=== PATIENT | female | born 1970 | race Caucasian/White ===

== ENCOUNTER 2017-06-30 20:45 | Emergency (ER) | payer BC ==
[2017-06-30] MEDS ORDERED: LORazepam 2 MG/ML SDV IVPUSH ONE (21:03)
--- NOTE | 2017-06-30 21:12 | EDM.PDOCBH ---
ED HPI GENERAL MEDICAL PROBLEM - General Chief Complaint: Chest Pain Stated Complaint: CHEST PAIN Time Seen by Provider: 06/30/17 20:54 Source of Information: Reports: Patient, Family History Limitations: Reports: Other (Experiencing a panic attack) - History of Present Illness INITIAL COMMENTS - FREE TEXT/NARRATIVE: Patient is a 47-year-old female presents ED complaining of chest and back pains been going on for the past few days. Patient presents to the ED having a panic attack. Patient complains of increased breathing rate with n/t to the face, lips , and hands. States she was just going to work at the [employer] this evening and started having worsening symptoms. Drove herself back to [facility] to be evaluated. States the pain to the chest and back have been going back and forth described as a pressure sensation worsened with taking a deep breath. She' s had similar symptoms in the past when she experiences panic attacks. She denies any recent increased stress at work at home. She is treated with sertraline for anxiety and depression. Denies any nausea/vomiting, headache, fever, abdominal pain, dysuria, or any additional complaints. Past medical history includes: Panic attacks, depression/anxiety, GERD, seasonal allergies. Current medications include Prilosec, sertraline, Ashley, and vitamins. Patient denies any surgical history. PCP is Sarah Castillo. Patient states both her brother and father developed heart disease in their late 30s. Alcohol use occasionally. Denies any recreational drugs or smoking history. - Related Data Allergies Allergy/AdvReac Type Severity Reaction Status Date / Time No Known Allergies Allergy Verified 06/30/17 21:05 Past Medical History - Past Health History Medical/Surgical History: Denies Medical/Surgical History Psychiatric History: Reports: Anxiety Social & Family History - Family History Family Medical History: Noncontributory - Tobacco Use Smoking Status *Q: Never Smoker - Recreational Drug Use Recreational Drug Use: No ED ROS GENERAL - Review of Systems Review Of Systems: ROS reveals no pertinent complaints other than HPI. ED EXAM, BEHAVIORAL HEALTH - Physical Exam Exam: See Below Exam Limited By: Other (Having a panic attack) General Appearance: Alert, Anxious, Mild Distress Eye Exam: Bilateral Eye: Normal Inspection, PERRL Ears: Hearing Grossly Normal Nose: Normal Inspection Throat/Mouth: Normal Inspection, Normal Oropharynx, Normal Voice, No Airway Compromise Head: Atraumatic, Normocephalic Neck: Normal Inspection, Supple, Non-Tender, Full Range of Motion Respiratory/Chest: No Respiratory Distress, Lungs Clear, Normal Breath Sounds, No Accessory Muscle Use, Chest Non-Tender Cardiovascular: Normal Peripheral Pulses, Regular Rate, Rhythm, No Murmur GI/Abdominal: Normal Bowel Sounds, Soft, Non-Tender, No Organomegaly, No Distention Back Exam: Normal Inspection Extremities: Normal Inspection Neurological: Alert, CN II-XII Intact, Normal Cognition, No Motor/Sensory Deficits, Oriented x 3 Psychiatric: Alert, Normal Cognition, Oriented, Tearful (Having a panic attack) Skin Exam: Warm, Dry, Normal color COURSE, BEHAVIORAL HEALTH COMP - Course Vital Signs: Last Vital Signs Temp 96.9 F 06/30/17 20:47 Pulse 69 06/30/17 20:47 Resp 38 H 06/30/17 20:47 BP 138/97 H 06/30/17 20:47 Pulse Ox 99 06/30/17 20:47 Orders, Labs, Meds: Active Orders 24 hr Category Date Time Status DRUG SCREEN, URINE [URCHEM] Stat Lab 06/30/17 21:42 Ordered Laboratory Tests 06/30/17 06/30/17 06/30/17 Range/Units 20:55 20:55 20:55 WBC 8.50 (3.98-10.04) K/mm3 RBC 4.93 (3.98-5.22) M/mm3 Hgb 13.6 (11.2-15.7) gm/L Hct 41.8 (34.1-44.9) % MCV 84.8 (79.4-94.8) fl MCH 27.6 (25.6-32.2) pg MCHC 32.5 (32.2-35.5) g/dl RDW Std Deviation 42.2 (36.4-46.3) fL Plt Count 384 H (182-369) K/mm3 MPV 10.4 (9.4-12.3) fl Neutrophils % (Manual) 51 (40-60) % Band Neutrophils % 0 (0-10) % Lymphocytes % (Manual) 46 H (20-40) % Atypical Lymphs % 0 % Monocytes % (Manual) 2 (2-10) % Eosinophils % (Manual) 0 L (0.7-5.8) % Basophils % (Manual) 1 (0.1-1.2) Platelet Estimate Adequate Plt Morphology Comment Normal RBC Morph Comment Normal Sodium 139 (136-145) mEq/L Potassium 3.4 L (3.5-5.1) mEq/L Chloride 105 (98-107) mEq/L Carbon Dioxide 20 L (21-32) mEq/L Anion Gap 17.4 H (5-15) BUN 10 (7-18) mg/dL Creatinine 0.9 (0.55-1.02) mg/dL Est Cr Clr Drug Dosing 80.76 mL/min Estimated GFR (MDRD) > 60 (>60) mL/min BUN/Creatinine Ratio 11.1 L (14-18) Glucose 97 (74-106) mg/dL Calcium 9.5 (8.5-10.1) mg/dL Total Bilirubin 0.3 (0.2-1.0) mg/dL AST 22 (15-37) U/L ALT 15 (14-59) U/L Alkaline Phosphatase 91 (46-116) U/L Troponin I < 0.017 (0.00-0.056) ng/mL C-Reactive Protein 0.4 (<1.0) mg/dL Total Protein 7.6 (6.4-8.2) g/dl Albumin 3.6 (3.4-5.0) g/dl Globulin 4.0 gm/dL Albumin/Globulin Ratio 0.9 L (1-2) TSH 3rd Generation 1.632 (0.358-3.74) uIU/mL HCG, Qual Negative (NEGATIVE) Urine Color (Yellow) Urine Appearance (Clear) Urine pH (5.0-8.0) Ur Specific [place] (1.005-1.030) Urine Protein (Negative) Urine Glucose (UA) (Negative) Urine Ketones (Negative) Urine Occult Blood (Negative) Urine Nitrite (Negative) Urine Bilirubin (Negative) Urine Urobilinogen (0.2-1.0) Ur Leukocyte Esterase (Negative) Urine RBC (0-5) /hpf Urine WBC (0-5) /hpf Ur Epithelial Cells (0-5) /hpf Urine Bacteria (FEW) /hpf Hyaline Casts (0-5) /lpf Urine Mucus (FEW) /hpf Urine Opiates Screen (NEGATIVE) Ur Buprenorphine Scrn (NEGATIVE) Ur Oxycodone Screen (NEGATIVE) Urine Methadone Screen (NEGATIVE) Ur Propoxyphene Screen (NEGATIVE) Ur Barbiturates Screen (NEGATIVE) Ur Tricyclics Screen (NEGATIVE) Ur Phencyclidine Scrn (NEGATIVE) Ur Amphetamine Screen (NEGATIVE) U Methamphetamines Scrn (NEGATIVE) U Benzodiazepines Scrn (NEGATIVE) U Cocaine Metab Screen (NEGATIVE) U Marijuana (THC) Screen (NEGATIVE) 06/30/17 06/30/17 Range/Units 21:42 21:42 WBC (3.98-10.04) K/mm3 RBC (3.98-5.22) M/mm3 Hgb (11.2-15.7) gm/L Hct (34.1-44.9) % MCV (79.4-94.8) fl MCH (25.6-32.2) pg MCHC (32.2-35.5) g/dl RDW Std Deviation (36.4-46.3) fL Plt Count (182-369) K/mm3 MPV (9.4-12.3) fl Neutrophils % (Manual) (40-60) % Band Neutrophils % (0-10) % Lymphocytes % (Manual) (20-40) % Atypical Lymphs % % Monocytes % (Manual) (2-10) % Eosinophils % (Manual) (0.7-5.8) % Basophils % (Manual) (0.1-1.2) Platelet Estimate Plt Morphology Comment RBC Morph Comment Sodium (136-145) mEq/L Potassium (3.5-5.1) mEq/L Chloride (98-107) mEq/L Carbon Dioxide (21-32) mEq/L Anion Gap (5-15) BUN (7-18) mg/dL Creatinine (0.55-1.02) mg/dL Est Cr Clr Drug Dosing mL/min Estimated GFR (MDRD) (>60) mL/min BUN/Creatinine Ratio (14-18) Glucose (74-106) mg/dL Calcium (8.5-10.1) mg/dL Total Bilirubin (0.2-1.0) mg/dL AST (15-37) U/L ALT (14-59) U/L Alkaline Phosphatase (46-116) U/L Troponin I (0.00-0.056) ng/mL C-Reactive Protein (<1.0) mg/dL Total Protein (6.4-8.2) g/dl Albumin (3.4-5.0) g/dl Globulin gm/dL Albumin/Globulin Ratio (1-2) TSH 3rd Generation (0.358-3.74) uIU/mL HCG, Qual (NEGATIVE) Urine Color Yellow (Yellow) Urine Appearance Clear (Clear) Urine pH 6.5 (5.0-8.0) Ur Specific [place] 1.025 (1.005-1.030) Urine Protein Negative (Negative) Urine Glucose (UA) Negative (Negative) Urine Ketones Negative (Negative) Urine Occult Blood Negative (Negative) Urine Nitrite Negative (Negative) Urine Bilirubin Negative (Negative) Urine Urobilinogen 0.2 (0.2-1.0) Ur Leukocyte Esterase Negative (Negative) Urine RBC 0-5 (0-5) /hpf Urine WBC 0-5 (0-5) /hpf Ur Epithelial Cells 5-10 H (0-5) /hpf Urine Bacteria Few (FEW) /hpf Hyaline Casts 0-5 (0-5) /lpf Urine Mucus Many H (FEW) /hpf Urine Opiates Screen Negative (NEGATIVE) Ur Buprenorphine Scrn Negative (NEGATIVE) Ur Oxycodone Screen Negative (NEGATIVE) Urine Methadone Screen Negative (NEGATIVE) Ur Propoxyphene Screen Negative (NEGATIVE) Ur Barbiturates Screen Negative (NEGATIVE) Ur Tricyclics Screen Negative (NEGATIVE) Ur Phencyclidine Scrn Negative (NEGATIVE) Ur Amphetamine Screen Negative (NEGATIVE) U Methamphetamines Scrn Negative (NEGATIVE) U Benzodiazepines Scrn Negative (NEGATIVE) U Cocaine Metab Screen Negative (NEGATIVE) U Marijuana (THC) Screen Negative (NEGATIVE) Medications Discontinued Medications Generic Name Dose Route Start Last Admin Trade Name Mariela PRN Reason Stop Dose Admin Lorazepam 0.5 mg 06/30/17 21:03 06/30/17 21:12 Ativan IVPUSH 06/30/17 21:04 0.5 mg ONETIME ONE Administration Re-Assessment/Re-Exam: Blood pressure on examination 130/97, heart rate 74, SPO2 100%, respiratory rate 20. During examination patient started holding her breath having a panic attack. Daughter was on the phone with father and coached her to calm down. IV established. Ordered some Ativan 0.5 mg IVP. Initial labs and studies include CBC, chem 14, CRP, troponin, TSH, UA, urine drug tox, hCG, and chest x-ray one view. EKG revealed sinus rhythm at a rate of [address] changes noted. HI interval is 107. QTC 465. Chest x-ray impression: reviewed with Dr. Gillis with no acute findings. Final interpretation is pending. Labs reviewed: CBC essentially normal. K 3.4. Troponin WNL. TSH WNL. CRP WNL. UA negative for infection. HCG negative. 2146 Reassessment, patient resting comfortably in bed. VSS. She is ready to be discharged home. Departure - Departure Time of Disposition: 21:59 Disposition: Home, Self-Care 01 Condition: Good Clinical Impression: Panic attack, Acute chest wall pain Back pain Qualifiers: Back pain location: thoracic back pain Chronicity: acute Back pain laterality: bilateral Qualified Code(s): M54.6 - Pain in thoracic spine - Discharge Information Instructions: Panic Attack, [id number], Back Pain, Adult, [id number], Chest Wall Pain Referrals: PCP,Declined [Ordering Only Provider] - Forms: ED Department Discharge, ED Return to Work/School Form Additional Instructions: Suggest going home and resting this evening. See your PCP this coming week for reevaluation. Return to the E.D. if you develop any new or worsening symptoms. No driving this evening. - My Orders Last 24 Hours: My Active Orders 06/30/17 21:42 DRUG SCREEN, URINE [URCHEM] Stat - Assessment/Plan Last 24 Hours: My Active Orders 06/30/17 21:42 DRUG SCREEN, URINE [URCHEM] Stat
--- NOTE | 2017-07-02 08:36 | CR ---
Chest: Portable view of the chest was obtained. Comparison: No prior chest x-ray. Heart size and mediastinum are normal. Lungs are clear. Bony structures are grossly intact. Impression: 1. Nothing acute is seen on portable chest x-ray. Diagnostic code #1
== END 2017-06-30 22:14 | disposition home or self-care (01) ==
LOC: JD.ED 20:45
DX: F41.0 Panic disorder [episodic paroxysmal anxiety] (principal); M54.6 Pain in thoracic spine
CPT/HCPCS: 36415; 71045; 80053; 80306; 81001; 84443; 84484; 84703; 85007; 85027; 86140; 96374; 99285; J2060

== ENCOUNTER → 2020-02-12 | Day surgery (SDC) | payer BC ==
[~2020-02-12] MED LIST: Acetaminophen/HYDROcodone 325-5 MG Tab PO ONE; Bupivacaine 0.25% 10 ML SDV ONE; Dexamethasone 4 MG/ML 5 ML MDV ONE; Dexmedetomidine 200 MCG/2 ML SDV ONE; EPINEPHrine 1 MG/ML 30 ML MDV IRR SCH; HYDROmorphone 0.5 MG/0.5 ML Syringe IVPUSH PRN; Ketamine 500 mg/10 ML MDV ONE; Ketorolac 30 MG/ML SDV ONE; Lactated Ringers 1,000 ML IV SCH; Lactated Ringers 1,000 ML ONE; Lidocaine 1% 4 ML ONE; Lidocaine 1%/Sod Bicarbonate in NS 8.4% 1 ML Syringe IDERM PRN; Midazolam 1 MG/ML 2 ML SDV ONE; Ondansetron 4 MG/2 ML SDV IVPUSH PRN; Ondansetron 4 MG/2 ML SDV ONE; Propofol 200 MG/20 ML SDV ONE; Sodium Chloride 0.9% 10 ML Syringe FLUSH PRN; ceFAZolin 1 GM Vial ONE; fentaNYL 100 MCG/2 ML SDV IVPUSH PRN; fentaNYL 100 MCG/2 ML SDV ONE
--- NOTE | 2020-02-12 07:41 | PCM.PREANE ---
Preanesthetic Assessment - Procedure Proposed Procedure: Left KVA with synovectomy - Anesthesia/Transfusion/Family Hx Anesthesia History: Prior Anesthesia Reaction (Wakes up with anger and agitation.) Family History of Anesthesia Reaction: No - Review of Systems General: No Symptoms Pulmonary: Other (Sleep Apnea, has a CPAP does not use it. ) Cardiovascular: No Symptoms Gastrointestinal: Other (GERD controlled with her medication) Neurological: Other (Hearing loss, tinnitus) Other: Reports: None (Obesity), Depression, Anxiety (Panic Attacks) - Physical Assessment NPO Status Date: 02/11/20 NPO Status Time: 20:30 (Water) Weight: 106 kg ASA Class: 3 Mental Status: Alert & Oriented x3 Airway Class: Mallampati = 3 Dentition: Reports: Missing Tooth/Teeth Thyro-Mental Finger Breadths: 2 Mouth Opening Finger Breadths: 3 ROM/Head Extension: Full Lungs: Clear to Auscultation, Normal Respiratory Effort Cardiovascular: Regular Rate, Regular Rhythm - Lab Values: Laboratory Last Values MRSA (PCR) Negative 02/04/20 10:35 - Allergies Allergies/Adverse Reactions: Allergies Allergy/AdvReac Type Severity Reaction Status Date / Time No Known Allergies Allergy Verified 06/30/17 21:05 - Anesthesia Plan Pre-Op Medication Ordered: Anxiolytic - Acknowledgements Anesthesia Type Planned: General Anesthesia (LMA Bandana) Pt an Appropriate Candidate for the Planned Anesthesia: Yes Alternatives and Risks of Anesthesia Discussed w Pt/Guardian: Yes Pt/Guardian Understands and Agrees with Anesthesia Plan: Yes PreAnesthesia Questionnaire - Past Health History Medical/Surgical History: Denies Medical/Surgical History Psychiatric History: Reports: Anxiety - HOME MEDS Home Medications: Home Meds Acetaminophen/HYDROcodone [[place] 325-5 MG] 1 - 2 tab PO Q6H PRN #20 tablet 02/12/20 [Rx] Aspirin [Aspirin EC] 325 mg PO BID #84 tab 02/12/20 [Rx] - CURRENT (IN HOUSE) MEDS Current Meds: Current Medications Epinephrine HCl (Adrenalin) 3 mg IRR ONETIME RA Stop: 02/12/20 23:00 Lactated Ringer's (Ringers, Lactated) 1,000 mls @ 125 mls/hr IV ASDIRECTED RA Stop: 02/12/20 23:00 Last Admin: 02/12/20 06:50 Dose: 125 mls/hr Documented by: Lidocaine/Sodium Bicarbonate (Buffered Lidocaine 1% In Ns 8.4%) 0.25 ml IDERM ONETIME PRN PRN Reason: Prior to IV Start Stop: 02/12/20 18:00 Sodium Chloride (Saline Flush) 10 ml FLUSH ASDIRECTED PRN PRN Reason: Keep Vein Open Stop: 02/12/20 18:00 Discontinued Medications Bupivacaine HCl (Sensorcaine-Mpf 0.25%) Confirm Administered Dose 20 ml .ROUTE .STK-MED ONE Stop: 02/12/20 06:15 Cefazolin Sodium (Ancef) Confirm Administered Dose 2 gm .ROUTE .STK-MED ONE Stop: 02/12/20 06:31 Dexamethasone (Dexamethasone) Confirm Administered Dose 20 mg .ROUTE .STK-MED ONE Stop: 02/12/20 06:32 Dexmedetomidine HCl (Precedex) Confirm Administered Dose 200 mcg .ROUTE .STK-MED ONE Stop: 02/12/20 07:15 Fentanyl (Sublimaze) Confirm Administered Dose 100 mcg .ROUTE .STK-MED ONE Stop: 02/12/20 06:31 Lactated Ringer's (Ringers, Lactated) Confirm Administered Dose 1,000 mls @ as directed .ROUTE .STK-MED ONE Stop: 02/12/20 06:31 Lidocaine HCl (Xylocaine-Mpf 1%) Confirm Administered Dose 4 mls @ as directed .ROUTE .STK-MED ONE Stop: 02/12/20 06:32 Ketamine HCl (Ketalar) Confirm Administered Dose 500 mg .ROUTE .STK-MED ONE Stop: 02/12/20 07:09 Ketorolac Tromethamine (Toradol) Confirm Administered Dose 30 mg .ROUTE .STK-MED ONE Stop: 02/12/20 06:31 Midazolam HCl (Versed 1 Mg/Ml) Confirm Administered Dose 2 mg .ROUTE .STK-MED ONE Stop: 02/12/20 06:32 Ondansetron HCl (Zofran) Confirm Administered Dose 4 mg .ROUTE .STK-MED ONE Stop: 02/12/20 06:31 Propofol (Diprivan 20 Ml) Confirm Administered Dose 400 mg .ROUTE .STK-MED ONE Stop: 02/12/20 06:31
--- NOTE | 2020-02-12 08:05 | PCM.POSTAN ---
POST ANESTHESIA ASSESSMENT - MENTAL STATUS Mental Status: Alert, Oriented - VITAL SIGNS Vital Signs: Last Vital Signs Temp 36.3 C 02/12/20 06:00 Pulse 67 02/12/20 06:00 Resp 16 02/12/20 06:00 BP 133/93 H 02/12/20 06:00 Pulse Ox 96 02/12/20 06:00 - RESPIRATORY Respiratory Status: Respiratory Rate WNL, Airway Patent, O2 Saturation Stable, Supplemental Oxygen - CARDIOVASCULAR CV Status: Pulse Rate WNL, Blood Pressure Stable - GASTROINTESTINAL GI Status: No Symptoms - PAIN Pain Score: 0 - POST OP HYDRATION Hydration Status: Adequate & Stable
--- NOTE | 2020-02-12 11:10 | PCM48HPAN ---
Post Anesthesia Note - EVALUATION WITHIN 48HRS OF ANESTHETIC Vital Signs in Normal Range: Yes Patient Participated in Evaluation: Yes Respiratory Function Stable: Yes Airway Patent: Yes Cardiovascular Function Stable: Yes Hydration Status Stable: Yes Pain Control Satisfactory: Yes Nausea and Vomiting Control Satisfactory: Yes Mental Status Recovered: Yes Vital Signs: Last Vital Signs Temp 36.1 C 02/12/20 09:00 Pulse 61 02/12/20 09:31 Resp 14 02/12/20 09:31 BP 103/61 02/12/20 09:31 Pulse Ox 95 02/12/20 09:31
--- NOTE | 2020-03-01 14:42 | PCM.OPNOTE ---
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
--- NOTE | 2020-03-01 14:58 | OR ---
DATE OF OPERATION: 02/12/2020 SURGEON: Nando Justice MD OPERATION PERFORMED: Left knee video arthroscopy with partial synovectomy and chondroplasty. PREOPERATIVE DIAGNOSIS: Left knee possible medial meniscus tear. POSTOPERATIVE DIAGNOSIS: Left knee chondromalacia with fat pad impingement. ANESTHESIA: General LMA with local. ANESTHESIA PROVIDER: Ginger Wren. POMOLOGIST: Maci Laguerre PA-C. ESTIMATED BLOOD LOSS: Less than 5 mL. COMPLICATIONS: None. CONDITION: Stable. DESCRIPTION OF PROCEDURE: The patient was identified in the preoperative holding area. Proper site was marked and identified by surgeon. The patient was taken back to the operative theater, where after adequate anesthesia, the patient's right lower extremity was placed in a well leg montanez. Left lower extremity had a nonsterile tourniquet applied and was placed in a C-clamp montanez. Foot of bed was then lowered. Left lower extremity was then sterilely prepped and draped in the usual sterile fashion. OR time-out was performed. The patient received 2 g of IV Ancef. Left lower extremity was exsanguinated and tourniquet was insufflated to 250 mmHg. Standard anterior lateral portal incision was made. Scope trocar was introduced. The patient was noted to have grade 2 chondromalacia of the patellofemoral joint. She was also noted to have significant synovitis and anterior fat pad overgrowth as well as a plica. Attention was turned to the medial compartment. Anteromedial portal was created with the use of a spinal needle. The patient was noted to have no meniscal tear but was noted to have chondromalacia of the medial femoral condyle. Chondroplasty of the medial femoral condyle was then performed at this time back to a stable border. ACL was intact in the notch. Lateral compartment showed no chondromalacic changes. At this time, attention was turned to the anterior compartment. The patella had a partial chondroplasty performed. A partial synovectomy was then performed of the fat pad as well as resection of the plica. The patient had excess saline drained from the knee. 3-0 nylon sutures were used for closure of the skin. 0.25% Marcaine was injected in the portals. The patient had a sterile soft dressing applied and was sent to the PACU in stable condition. MMODAL /[id number]
== END | disposition home or self-care (01) ==
LOC: JD.SDS 05:55
PROVIDERS: ATTEND Orthopaedic Surgery
DX: M65.862 Other synovitis and tenosynovitis, left lower leg (principal); M94.262 Chondromalacia, left knee; M25.862 Other specified joint disorders, left knee; K21.9 Gastro-esophageal reflux disease without esophagitis; G47.30 Sleep apnea, unspecified; Z79.899 Other long term (current) drug therapy; J30.9 Allergic rhinitis, unspecified
CPT/HCPCS: 29875; 87641; A9270; J0690; J1100; J1885; J2001; J2250; J2405; J2704; J3010; J3490; J7120; 01400

== ENCOUNTER 2020-03-18 06:57 | Day surgery (SDC) | payer BC ==
[2020-03-18] MEDS ORDERED: Lactated Ringers 1,000 ML IV SCH (07:00)
[2020-03-18] MEDS ORDERED: Sodium Chloride 0.9% 10 ML Syringe FLUSH PRN (07:00)
[2020-03-18] MEDS ORDERED: Lidocaine 1%/Sod Bicarbonate in NS 8.4% 1 ML Syringe IDERM PRN (07:00)
[2020-03-18] MEDS ORDERED: Ondansetron 4 MG/2 ML SDV ONE (07:09)
[2020-03-18] MEDS ORDERED: Lidocaine 1% 4 ML ONE (07:09)
[2020-03-18] MEDS ORDERED: Propofol 200 MG/20 ML SDV ONE ×2 (07:09→08:33)
[2020-03-18] MEDS ORDERED: fentaNYL 250 MCG/5 ML SDV ONE (07:10)
[2020-03-18] MEDS ORDERED: Midazolam 1 MG/ML 2 ML SDV ONE (07:10)
[2020-03-18] MEDS ORDERED: ceFAZolin 1 GM Vial ONE (07:10)
--- NOTE | 2020-03-18 07:25 | PCM.PREANE ---
Preanesthetic Assessment - Procedure Proposed Procedure: right kva medial femoral chondroplasty partial synovectomy and injection left knee - Anesthesia/Transfusion/Family Hx Anesthesia History: Prior Anesthesia Reaction (Wakes up with anger and agitation.) Family History of Anesthesia Reaction: No Transfusion History: No Prior Transfusion(s) - Review of Systems General: No Symptoms Pulmonary: No Symptoms Cardiovascular: No Symptoms Gastrointestinal: No Symptoms Neurological: No Symptoms Other: Reports: Depression, Anxiety - Physical Assessment NPO Status Date: 03/17/20 NPO Status Time: 23:30 Vital Signs: 135/89 64 98% 97.1 20 Height: 5 ft 9 in Weight: 101 kg ASA Class: 2 Mental Status: Alert & Oriented x3 Airway Class: Mallampati = 1 Dentition: Reports: Normal Dentition Thyro-Mental Finger Breadths: 3 Mouth Opening Finger Breadths: 3 ROM/Head Extension: Full Lungs: Clear to Auscultation, Normal Respiratory Effort Cardiovascular: Regular Rate, Regular Rhythm - Lab Values: Laboratory Last Values MRSA (PCR) Negative 03/10/20 14:32 - Allergies Allergies/Adverse Reactions: Allergies Allergy/AdvReac Type Severity Reaction Status Date / Time No Known Allergies Allergy Verified 03/17/20 14:28 - Blood Blood Available: No - Anesthesia Plan Beta Elmer: Propranolol Med Last Dose Date: 03/17/20 Med Last Dose Time: 15:00 - Acknowledgements Anesthesia Type Planned: General Anesthesia Pt an Appropriate Candidate for the Planned Anesthesia: Yes Alternatives and Risks of Anesthesia Discussed w Pt/Guardian: Yes Pt/Guardian Understands and Agrees with Anesthesia Plan: Yes PreAnesthesia Questionnaire - Past Health History Medical/Surgical History: Denies Medical/Surgical History HEENT History: Reports: Hard of Hearing, Impaired Vision, Other (See Below) Other HEENT History: tinnitus, wears glasses Cardiovascular History: Reports: None Respiratory History: Reports: Sleep Apnea Gastrointestinal History: Reports: GERD Genitourinary History: Reports: None FANCY PACKER History: Reports: None Musculoskeletal History: Reports: Other (See Below) Other Musculoskeletal History: coccydynia, bilateral knee pain, restless legs Neurological History: Reports: Vertigo Psychiatric History: Reports: Anxiety, Depression, Panic Attack Endocrine/Metabolic History: Reports: None Hematologic History: Reports: None Immunologic History: Reports: None Oncologic (Cancer) History: Reports: None Dermatologic History: Reports: None - Infectious Disease History Infectious Disease History: Reports: None - Past Surgical History Head Surgeries/Procedures: Reports: None HEENT Surgical History: Reports: Oral Surgery Cardiovascular Surgical History: Reports: None Respiratory Surgical History: Reports: None GI Surgical History: Reports: EGD Female Surgical History: Reports: Tubal Ligation Male Surgical History: Reports: None Endocrine Surgical History: Reports: None Neurological Surgical History: Reports: None Musculoskeletal Surgical History: Reports: Other (See Below) Other Musculoskeletal Surgeries/Procedures:: foot surgery, left knee surgery and 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 Oncologic Surgical History: Reports: None Dermatological Surgical History: Reports: None - SUBSTANCE USE Tobacco Use Status *Q: Never Tobacco User Tobacco Use Within Last Twelve Months: No Second Hand Smoke Exposure: No Days Per Week of Alcohol Use: 1 (rare) Recreational Drug Use History: No - HOME MEDS Home Medications: Home Meds Fexofenadine [Ashley] 180 mg PO DAILY 02/12/20 [History] LORazepam [Lorazepam] 0.5 mg PO Q8HR PRN 02/12/20 [History] Omeprazole 40 mg PO DAILY 02/12/20 [History] Propranolol [Inderal LA] 60 mg PO DAILY 02/12/20 [History] Sertraline HCl 200 mg PO DAILY 02/12/20 [History] buPROPion HCL [Bupropion HCl Sr] 150 mg PO DAILY 02/12/20 [History] Acetaminophen/HYDROcodone [[place] 325-5 MG] 1 - 2 tab PO Q6H PRN #20 tablet 03/17/20 [Rx] Aspirin [Aspirin EC] 325 mg PO BID #84 tab 03/17/20 [Rx] - CURRENT (IN HOUSE) MEDS Current Meds: Current Medications Epinephrine HCl (Adrenalin) 3 mg IRR ONETIME RA Stop: 03/18/20 18:00 Lactated Ringer's (Ringers, Lactated) 1,000 mls @ 125 mls/hr IV ASDIRECTED RA Stop: 03/18/20 23:00 Lidocaine/Sodium Bicarbonate (Buffered Lidocaine 1% In Ns 8.4%) 0.25 ml IDERM ONETIME PRN PRN Reason: Prior to IV Start Stop: 03/18/20 23:00 Sodium Chloride (Saline Flush) 10 ml FLUSH ASDIRECTED PRN PRN Reason: Keep Vein Open Stop: 02/11/21 23:00 Discontinued Medications Bupivacaine HCl (Sensorcaine-Mpf 0.25%) Confirm Administered Dose 20 ml .ROUTE .STK-MED ONE Stop: 03/18/20 07:13 Cefazolin Sodium (Ancef) Confirm Administered Dose 2 gm .ROUTE .STK-MED ONE Stop: 03/18/20 07:11 Fentanyl (Sublimaze) Confirm Administered Dose 250 mcg .ROUTE .STK-MED ONE Stop: 03/18/20 07:11 Lidocaine HCl (Xylocaine-Mpf 1%) Confirm Administered Dose 4 mls @ as directed .ROUTE .STK-MED ONE Stop: 03/18/20 07:10 Midazolam HCl (Versed 1 Mg/Ml) Confirm Administered Dose 2 mg .ROUTE .STK-MED ONE Stop: 03/18/20 07:11 Ondansetron HCl (Zofran) Confirm Administered Dose 4 mg .ROUTE .STK-MED ONE Stop: 03/18/20 07:10 Propofol (Diprivan 20 Ml) Confirm Administered Dose 200 mg .ROUTE .STK-MED ONE Stop: 03/18/20 07:10 Triamcinolone Acetonide (Kenalog-40) Confirm Administered Dose 80 mg .ROUTE .STK-MED ONE Stop: 03/18/20 07:13
[2020-03-18] MEDS ORDERED: Ketamine 500 mg/10 ML MDV ONE (07:35)
[2020-03-18] MEDS ORDERED: Ketorolac 15 MG/ML SDV ONE (07:35)
[2020-03-18] MEDS ORDERED: Dexmedetomidine 200 MCG/2 ML SDV ONE (07:36)
[2020-03-18] MEDS ORDERED: Dexamethasone 4 MG/ML 5 ML MDV ONE (07:37)
[2020-03-18] MEDS ORDERED: Sodium Chloride 0.9% 100 ML ONE (07:45)
[2020-03-18] MEDS: EPINEPHrine 1 MG/ML 30 ML MDV IRR SCH ×2 (08:09→09:01)
[2020-03-18] MEDS: Bupivacaine 0.25% 10 ML SDV ONE ×4 (08:12→09:15)
[2020-03-18] MEDS: Triamcinolone Acetonide 40 MG/ML 1 ML SDV ONE ×2 (08:12→09:15)
[2020-03-18] MEDS ORDERED: HYDROmorphone 0.5 MG/0.5 ML Syringe IVPUSH PRN (08:40)
[2020-03-18] MEDS ORDERED: Ondansetron 4 MG/2 ML SDV IVPUSH PRN (08:40)
[2020-03-18] MEDS ORDERED: fentaNYL 100 MCG/2 ML SDV IVPUSH PRN (08:40)
[2020-03-18] MEDS ORDERED: ePHEDrine 50 MG/ML SDV ONE (08:48)
[2020-03-18] MEDS ORDERED: Lactated Ringers 1,000 ML ONE (09:05)
[2020-03-18] MEDS ORDERED: Ketorolac 30 MG/ML SDV ONE (09:11)
--- NOTE | 2020-03-18 09:33 | PCM.POSTAN ---
POST ANESTHESIA ASSESSMENT - MENTAL STATUS Mental Status: Alert, Oriented - VITAL SIGNS Vital Signs: Last Vital Signs Temp 97.1 F 03/18/20 07:00 Pulse 64 03/18/20 07:00 Resp 20 03/18/20 07:00 BP 135/89 03/18/20 07:00 Pulse Ox 98 03/18/20 07:00 0927 141/81 98% 74 12 97.2 - RESPIRATORY Respiratory Status: Respiratory Rate WNL, Airway Patent, O2 Saturation Stable, Supplemental Oxygen - CARDIOVASCULAR CV Status: Pulse Rate WNL, Blood Pressure Stable - GASTROINTESTINAL GI Status: No Symptoms - PAIN Pain Score: 0 - POST OP HYDRATION Hydration Status: Adequate & Stable
--- NOTE | 2020-03-18 12:20 | PCM48HPAN ---
Post Anesthesia Note - EVALUATION WITHIN 48HRS OF ANESTHETIC Vital Signs in Normal Range: Yes Patient Participated in Evaluation: Yes Respiratory Function Stable: Yes Airway Patent: Yes Cardiovascular Function Stable: Yes Hydration Status Stable: Yes Pain Control Satisfactory: Yes Nausea and Vomiting Control Satisfactory: Yes Mental Status Recovered: Yes Vital Signs: Last Vital Signs Temp 36.7 C 03/18/20 10:30 Pulse 66 03/18/20 11:30 Resp 15 03/18/20 11:30 BP 101/63 03/18/20 11:30 Pulse Ox 94 03/18/20 11:30
--- NOTE | 2020-03-28 15:50 | PCM.OPNOTE ---
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
--- NOTE | 2020-03-28 16:29 | OR ---
DATE OF OPERATION: 03/18/2020 SURGEON: Nando Justice MD OPERATION PERFORMED: Right knee video arthroscopy with medial femoral chondroplasty and partial synovectomy with left knee corticosteroid injection. PREOPERATIVE DIAGNOSIS: 1. 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 2. Left knee osteoarthrosis. POSTOPERATIVE DIAGNOSIS: 1. 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 2. Left knee osteoarthrosis. ANESTHESIA: General LMA with local. ANESTHESIA PROVIDER: ASSISTANTS: Maci Laguerre PA-C. ESTIMATED BLOOD LOSS: Less than 5 mL. COMPLICATIONS: None. CONDITION: Stable. DESCRIPTION OF PROCEDURE: The patient was identified in the preoperative holding area. Proper site was marked and identified by the surgeon. The patient was taken back to the operating theater where after adequate anesthesia, the patient's left lower extremity was placed in a well leg montanez. Right lower extremity had a nonsterile tourniquet applied and was then placed in a C-clamp montanez. Foot of the bed was then lowered. Right lower extremity was then sterilely prepped and draped in the usual sterile fashion. OR time-out was performed. Patient received 2 g IV Ancef. Right lower extremity was exsanguinated. Tourniquet was insufflated to 250 mmHg. Standard anterolateral portal incision was made. Scope trocar was introduced. The patient was noted to have grade 1/2 chondromalacia of the patella, especially of the medial facet. The patient was noted to have significant fat pad impingement as well as a small medial plica. Attention was turned to the medial compartment. Anteromedial portal was created with the use of a spinal needle. The patient was noted to have grade 3 chondromalacia of medial femoral condyle. Partial chondroplasty was then performed of the medial femoral condyle back to a stable rim. The patient was noted to have grade 2 chondromalacia of the medial tibial plateau. There was no meniscal tear noted. ACL was intact in the notch. Lateral compartment showed no chondromalacia changes. At this time, a partial synovectomy was performed of the anterior fat pad and plica. Excess saline was drained from the knee. 3-0 nylon suture was used for closure of skin. After this was completed under sterile technique, 2 mL of 40 mg Kenalog and 4 mL of 0.25% Marcaine were injected into the patient's left knee. The patient tolerated all procedures well. MMODAL /[id number]
== END 2020-03-18 12:21 | disposition home or self-care (01) ==
LOC: JD.SDS 06:57
PROVIDERS: ATTEND Orthopaedic Surgery
DX: M17.12 Unilateral primary osteoarthritis, left knee (principal); M94.261 Chondromalacia, right knee; M25.861 Other specified joint disorders, right knee; K21.9 Gastro-esophageal reflux disease without esophagitis; Z98.890 Other specified postprocedural states; Z79.899 Other long term (current) drug therapy
CPT/HCPCS: 20610; 29875; 87641; J0171; J0690; J1100; J1885; J2250; J2405; J2704; J3010; J3301; J3490; J7120; 01400